=== PATIENT | male | born 1995 | race Caucasian/White ===

== ENCOUNTER 2016-11-16 04:33 | Observation (INO) | payer OTHER ==
[2016-11-16] MEDS ORDERED: NS 1,000 ML IV ONE ×2 (04:57→06:09)
[2016-11-16] MEDS ORDERED: ONDANSETRON DISINTEGRATING 4 MG TAB PO ONE (04:57)
[2016-11-16] MEDS ORDERED: HYDROmorphONE/DILAUDID 1 MG/ML SYR IVP ONE (04:57)
[2016-11-16] MEDS ORDERED: ONDANSETRON 4 MG/2 ML VIAL IVP ONE (04:58)
--- NOTE | 2016-11-16 05:06 | EDPHY ---
H & P Stated Complaint: abd pain Time Seen by Provider: 11/16/16 04:52 HPI/ROS: HPI The patient presents with abdominal pain that has been present since about 1:00 a.m. today. He was able to fall sleep but then awoke at about 3:00 a.m. with worsening pain which is in his right abdomen, it is sharp in nature, radiates toward his back, is dull and severe. He has no prior history of similar pain. He has associated nausea without any vomiting, fever, anorexia. He has felt constipated for the last 1 day. He has never had pain like this before. He denies any trauma. He just return from a study abroad trip across several [place] 3 days ago. REVIEW OF SYSTEMS Constitutional: No fever, no chills. Eyes: No discharge. ENT: No sore throat. Cardiovascular: No chest pain, no palpitations. Respiratory: No cough, no shortness of breath. Gastrointestinal: See HPI Genitourinary: No hematuria. Musculoskeletal: No back pain. Skin: No rashes. Neurological: No headache. PMHx: Healthy Soc Hx: College student PHYSICAL General Appearance: Alert, uncomfortable appearing Eyes: Pupils equal and round no pallor or injection ENT, Mouth: Mucous membranes moist Respiratory: There are no retractions, lungs are clear to auscultation Cardiovascular: Regular rate and rhythm Gastrointestinal: Abdomen is soft with tenderness in the right abdomen lateral to the umbilicus. Neurological: A&O, moves all extremities Skin: Warm and dry, no rashes Musculoskeletal: Neck is supple non tender Extremities: symmetrical, full range of motion Psychiatric: Patient is oriented X 3, there is no agitation Source: Patient - Personal History Current Tetanus Diphtheria and Acellular Pertussis (TDAP): Yes - Medical/Surgical History Hx Asthma: No Hx Chronic Respiratory Disease: No Hx Diabetes: No Hx Cardiac Disease: No Hx Renal Disease: No Hx Cirrhosis: No Hx Alcoholism: No Hx HIV/AIDS: No Hx Splenectomy or Spleen Trauma: No Other PMH: denies - Social History Smoking Status: Never smoked Constitutional: Initial Vital Signs Temperature (C) 36.7 C 11/16/16 04:37 Heart Rate 80 11/16/16 04:37 Respiratory Rate 24 H 11/16/16 04:37 Blood Pressure 114/48 L 11/16/16 04:37 O2 Sat (%) 98 11/16/16 04:37 O2 Delivery Mode Room Air Allergies/Adverse Reactions: No Known Allergies Allergy (Unverified 11/16/16 04:37) Home Medications: Medication Instructions Recorded NK [No Known Home Meds] 11/16/16 Medical Decision Making - Diagnostics Imaging Results: Right lower quadrant ultrasound reveals appendicitis, discussed with Dr. Moreno of Radiology. Imaging: I viewed and interpreted images myself ED Course/Re-evaluation: 6:15 a.m.- Patient's labs returned and revealed a leukocytosis. Otherwise labs are normal. After receiving IV fluids and pain medication, his pain is much improved , now at 2/10 on reassessment. Ultrasound reveals acute appendicitis. I have consulted with Dr. Cook of General surgery who will come to the emergency room to evaluate the patient. 7:45 a.m.- The patient has been seen by Dr. Cook and will go to the operating room later this morning. He has received IV fluids and antibiotics at this point. Differential Diagnosis: This is a 21-year-old healthy male with several hours of right-sided abdominal pain. - Data Points Laboratory Results: Laboratory Results 11/16/16 04:47 11/16/16 04:47 11/16/16 11/16/16 04:47 04:47 WBC 14.02 10^3/uL H 10^3/uL (3.80-9.50) RBC 5.42 10^6/uL 10^6/uL (4.40-6.38) Hgb 16.4 g/dL g/dL (13.7-17.5) Hct 46.5 % % (40.0-51.0) MCV 85.8 fL fL (81.5-99.8) MCH 30.3 pg pg (27.9-34.1) MCHC 35.3 g/dL g/dL (32.4-36.7) RDW 12.0 % % (11.5-15.2) Plt Count 275 10^3/uL 10^3/uL (150-400) MPV 9.0 fL fL (8.7-11.7) Neut % (Auto) 86.0 % H % (39.3-74.2) Lymph % (Auto) 9.6 % L % (15.0-45.0) Williamson % (Auto) 3.2 % L % (4.5-13.0) Eos % (Auto) 0.4 % L % (0.6-7.6) Baso % (Auto) 0.3 % % (0.3-1.7) Nucleat RBC Rel Count 0.0 % % (0.0-0.2) Absolute Neuts (auto) 12.06 10^3/uL H 10^3/uL (1.70-6.50) Absolute Lymphs (auto) 1.34 10^3/uL 10^3/uL (1.00-3.00) Absolute Monos (auto) 0.45 10^3/uL 10^3/uL (0.30-0.80) Absolute Eos (auto) 0.06 10^3/uL 10^3/uL (0.03-0.40) Absolute Basos (auto) 0.04 10^3/uL 10^3/uL (0.02-0.10) Absolute Nucleated RBC 0.00 10^3/uL 10^3/uL (0-0.01) Immature Gran % 0.5 % % (0.0-1.1) Immature Gran # 0.07 10^3/uL 10^3/uL (0.00-0.10) Sodium 144 mEq/L mEq/L (134-144) Potassium 3.5 mEq/L mEq/L (3.5-5.2) Chloride 106 mEq/L mEq/L (97-110) Carbon Dioxide 22 mEq/l mEq/l (22-31) Anion Gap 16 mEq/L mEq/L (8-16) BUN 17 mg/dL mg/dL (7-23) Creatinine 1.0 mg/dL mg/dL (0.7-1.3) Estimated GFR > 60 Glucose 109 mg/dL H mg/dL (70-100) Calcium 10.1 mg/dL mg/dL (8.5-10.4) Total Bilirubin 1.0 mg/dL mg/dL (0.1-1.4) Conjugated Bilirubin 0.4 mg/dL mg/dL (0.0-0.5) Unconjugated Bilirubin 0.6 mg/dL mg/dL (0.0-1.1) AST 36 IU/L IU/L (17-59) ALT 37 IU/L IU/L (21-72) Alkaline Phosphatase 80 IU/L IU/L (38-126) Total Protein 8.1 g/dL g/dL (6.3-8.2) Albumin 5.2 g/dL H g/dL (3.5-5.0) Lipase 60.0 IU/L IU/L (23-300) Medications Given: Discontinued Medications Hydromorphone HCl (Dilaudid) 0.5 mg IVP EDNOW ONE Stop: 11/16/16 04:58 Last Admin: 11/16/16 05:08 Dose: 0.5 mg Sodium Chloride (Ns) 1,000 mls @ 0 mls/hr IV ONCE ONE PRN Reason: Wide Open Stop: 11/16/16 04:58 Last Admin: 11/16/16 05:05 Dose: 1,000 mls Sodium Chloride (Ns) 1,000 mls @ 0 mls/hr IV ONCE ONE PRN Reason: Wide Open Stop: 11/16/16 06:10 Last Admin: 11/16/16 06:23 Dose: 1,000 mls Ertapenem 1 gm/ Sodium (Chloride) 100 mls @ 200 mls/hr IV EDNOW ONE PRN Reason: Protocol Stop: 11/16/16 06:38 Last Admin: 11/16/16 06:33 Dose: 100 mls Ondansetron HCl (Zofran) 4 mg IVP EDNOW ONE Stop: 11/16/16 04:59 Last Admin: 11/16/16 05:06 Dose: 4 mg Departure - Departure Disposition: [facility] Acute Clinical Impression: Acute appendicitis Qualifiers: Acute appendicitis type: with localized peritonitis Qualified Code(s): K35.3 - Acute appendicitis with localized peritonitis Condition: Good
[2016-11-16 05:13] LABS: % IMMATURE GRANULYOCYTES 0.5 % (0.0-1.1); ABSOLUTE IMMATURE GRANULOCYTES 0.07 10^3/uL (0.00-0.10); ADD DIFF? NO; ADD MORPH? NO; ADD SCAN? NO; ATYPICAL LYMPHOCYTE FLAG 0 (0-99); FRAGMENT RBC FLAG 0 (0-99); HEMATOCRIT 46.5 % (40.0-51.0); HEMOGLOBIN 16.4 g/dL (13.7-17.5); LEFT SHIFT FLG 0 (0-99); LIPEMIA HEMOLYSIS FLAG 90 (0-99); MEAN CELL HEMOGLOBIN 30.3 pg (27.9-34.1); MEAN CELL HEMOGLOBIN CONCENTR. 35.3 g/dL (32.4-36.7); MEAN CELL VOLUME 85.8 fL (81.5-99.8); PLATELET CLUMPS FLAG 10 (0-99); PLATELET COUNT 275 10^3/uL (150-400); RED BLOOD CELL COUNT 5.42 10^6/uL (4.40-6.38)
[2016-11-16 05:18] LABS: ALANINE AMINOTRANSFERASE 37 IU/L (21-72); ALBUMIN 5.2 g/dL (3.5-5.0); ALKALINE PHOSPHATASE 80 IU/L (38-126); ANION GAP 16 mEq/L (8-16); ASPARTATE AMINOTRANSFERASE 36 IU/L (17-59); BILIRUBIN-CONJUGATED 0.4 mg/dL (0.0-0.5); BILIRUBIN-UNCONJUGATED 0.6 mg/dL (0.0-1.1); CALCIUM 10.1 mg/dL (8.5-10.4); CARBON DIOXIDE 22 mEq/l (22-31); CHLORIDE 106 mEq/L (97-110); GLOMERULAR FILTRATION RATE > 60; GLUCOSE 109 mg/dL (70-100); POTASSIUM 3.5 mEq/L (3.5-5.2); SODIUM 144 mEq/L (134-144); TOTAL PROTEIN 8.1 g/dL (6.3-8.2)
[2016-11-16] MEDS ORDERED: ERTAPENEM 1 GM in NS 100 ML IV ONE (06:09)
[2016-11-16] MEDS ORDERED: BUPIVACAINE/EPI 0.25% 30 ML SDV ONE (07:56)
[2016-11-16] MEDS ORDERED: BUPIVACAINE/EPI 0.5% 30 ML SDV ONE (07:56)
[2016-11-16] MEDS ORDERED: ceFAZolin 1 GM/5 ML SYR ONE ×2 (07:56→07:59)
--- NOTE | 2016-11-16 07:58 | GHP ---
[f rep st] PREOP HISTORY AND PHYSICAL DATE OF ADMISSION: 11/16/2016 ADMITTING DIAGNOSIS: Acute appendicitis. HISTORY OF PRESENT ILLNESS: The patient is a 21-year-old male who was in his usual state of good he alth. He had a hamburger at 8:30 last night. He went to bed at approximately 1:30 and was noted to be slightly uncomfortable at that point. He woke up at 3:30 with extreme right lower quadrant pain . He did not have nausea. He did not have vomiting. He presented to the ER for evaluation. His w susana count was 14,000 with 86% segs. An ultrasound showed a noncompressible tubular structure in th e right lower quadrant which was exquisitely tender for him. He has never had any prior abdominal surgery. He has never had any prior similar symptoms. He rece ntly had an upper respiratory tract infection. He did have diarrhea 4 months ago and 3 weeks ago. The diarrhea 3 weeks ago was when he was in [place] and the whole family had traveler's diarrhea. Th ey were treated with Cipro. 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 The [place] s visited included [place], [place], [place], [place], [place], [place], [place], and [place]. He also has been in the [place], [place] and [place]. He did have Zithromax 3 weeks ago. There is n o history of inflammatory bowel disease. SOCIAL HISTORY: He does not smoke. He does drink approximately 1 drink per day. ALLERGIES: He had an adverse reaction to Benadryl years ago marked by hallucinations. MEDICATIONS: He is not taking medications. PAST SURGICAL HISTORY: His only surgery has been removal of a stye from his eye. PAST MEDICAL HISTORY: There is no history of rheumatic fever, tuberculosis hepatitis, transfusions or HIV. REVIEW OF SYSTEMS: Absolutely negative. No limits on his activities. No history of steroid use. PHYSICAL EXAMINATION: GENERAL: He is awake, alert, in mild distress. HEENT: Skull is normocephal ic and atraumatic. NEUROLOGIC: Rocky Coma Scale 15. There are no focal lateralizing neurologic findings. LYMPHATICS: There is no cervical, supraclavicular, axillary or inguinal lymphadenopathy. NECK: Supple and nontender. Thyroid is not enlarged. LUNGS: Clear to auscultation. CARDIAC: S1, S2 normal. Split S2 without murmurs, rubs, or gallops. ABDOMEN: He is not hungry at this poin t. He has hypoactive bowel sounds. Psoas and obturator signs are negative. He is tender with coug h over McBurney point; it is 7/10. To palpation, left upper quadrant is 1, left mid abdomen is 1, l eft lower quadrant is 1, epigastrium is 1, periumbilical area is 1, suprapubic area is 1, right uppe r quadrant is 1, right mid abdomen is 6, right lower quadrant is 1. LABORATORY DATA: As mentioned above, his white count was 14,200, his percent neutrophils is 86%. H is hematocrit is 45, platelets 275,000. His metabolic panel was unremarkable. He did receive 1 g o f Invanz at 6 a.m. IMPRESSION: This patient has a high-degree probability of having acute appendicitis. The possibili ty of a parasitic component must be considered given his travel around the world. PLAN: Laparoscopic, possibly open, appendectomy. /[id number]/MODL
[2016-11-16] MEDS ORDERED: LR 1,000 ML IV ONE (08:00)
[2016-11-16] MEDS ORDERED: fentaNYL 100 MCG/2 ML INJ ONE ×3 (08:00→09:30)
[2016-11-16] MEDS ORDERED: PROPOFOL/EMULSION 500 MG/50 ML BOTTLE IV ONE (08:00)
[2016-11-16] MEDS ORDERED: ROCURONIUM 100 MG/10 ML VIAL ONE (08:02)
[2016-11-16] MEDS ORDERED: LIDOCAINE 2% 5 ML SDV ONE (08:02)
[2016-11-16] MEDS ORDERED: HEPARIN 5,000 UNIT/0.5 ML SYR SC ONE ×2 (08:30→10:30)
[2016-11-16] MEDS ORDERED: HEPARIN 1000 UNIT/1 ML MDV ONE (08:36)
[2016-11-16] MEDS ORDERED: GLYCOPYRROLATE 0.2 MG/1 ML VIAL ONE (08:40)
[2016-11-16] MEDS ORDERED: KETOROLAC 30 MG/1 ML SDV ONE (09:02)
[2016-11-16] MEDS ORDERED: SUGAMMADEX SODIUM 200 MG/2 ML VIAL IVP ONE (09:03)
[2016-11-16] MEDS ORDERED: HYDROmorphONE/DILAUDID 1 MG/ML SYR ONE (09:30)
[2016-11-16] MEDS ORDERED: ONDANSETRON 4 MG/2 ML VIAL IVP PRN (09:41)
--- NOTE | 2016-11-16 09:52 | POSTOPPROG ---
Post Op Note Date of Operation: 11/16/16 Surgeon: Edgar Cook Anesthesia: GET(General Endotracheal) Pre-op Diagnosis: acute appendicitis Post-op Diagnosis: acute appendicitis Indication: acute appendicitis Procedure: Laparoscopic appendectomy Findings: acute appendicitis Inf/Abcess present in the surg proc area at time of surgery?: No EBL: Minimal Total fluids administered: 2.2 liters since ER admission Complications: none Specimen(s): appendectomy
--- NOTE | 2016-11-16 10:18 | GOP ---
[f rep st] OPERATIVE REPORT DATE OF OPERATION: 11/16/2016 SURGEON: Edgar Cook MD ANESTHESIA: General endotracheal. PREOPERATIVE DIAGNOSIS: Acute appendicitis. POSTOPERATIVE DIAGNOSIS: Acute unruptured appendicitis. PROCEDURE PERFORMED: Laparoscopic appendectomy. FINDINGS: Acute unruptured appendicitis. INDICATIONS: Acute appendicitis DESCRIPTION OF PROCEDURE: The patient was placed on the operating table in a supine position. After induction of adequate general endotracheal anesthesia. The abdomen was carefully clipped, prepped, and draped. A surgical time-out was carried out and agreed to by all members of the operative team. A curvilinear incision was planned at the umbilicus. The skin was sharply incised. The dermal incision is deepened with Bovie electrocautery. Subcutaneous tissue was carefully bluntly spread to expose the anterior rectus sheath. This was elevated on either side of the midline with Allis clamps. The fascia was entered in the midline. A pursestring of #0 PDS was placed. The peritoneum was entered. An 11/12 disposable Aleksandr trocar was positioned. Intraabdominal insufflation was carried out to 15 mmHg. An oblique left lower quadrant 5 mm incision was made as was a transverse suprapubic incision. 5 mm trocars were carefully placed under direct vision. The peritoneal cavity was now inspected. There was no evidence of purulence. The appendix was retrocecal. The cecum had to be mobilized to expose the appendix. There was a small amount of periappendiceal serous fluid identified which was aspirated. The mesoappendix was divided with Harmonic Scalpel. Appendix was skeletonized at its base. Appendix was transected with 1 application of a powered 35 mm Endo -BERNADINE with vascular dafne. The specimen was placed in EndoCatch bag and carefully delivered. Examination was carried out. There was no evidence of inguinal hernias. The liver was unremarkable. Gallbladder was unremarkable. The small bowel was run for a distance of approximately 3 feet. There was no evidence of either a Meckel diverticulum or mesenteric adenitis. Irrigation with heparin and Ancef containing irrigant has been carried out. Ports were removed under direct vision. Abdominal insufflation was released. A simple suture of 0 PDS was placed at the midpoint of the midline fascial defect. The pursestring was tied first, then the simple PDS sutures tied. Subcutaneous tissue had been irrigated with heparin and Ancef containing irrigant. The skin was closed at all levels, inverted simple sutures of 4-0 Vicryl. Mastisol and Steri-Strips were applied. Band-Aids were positioned. The patient is transferred to recovery in stable and satisfactory condition. TOTAL FLUIDS: 2.2 L since ER admission. /[id number]/MODL MTDD
[2016-11-16] MEDS ORDERED: HYDROCODONE/APAP 5/325 TAB ONE (10:23)
[2016-11-16] MEDS: LR 1,000 ML IV SCH ×2 (11:38→21:39)
[2016-11-16] MEDS: KETOROLAC 15 MG/1 ML SDV IVP SCH ×2 (11:38→18:11)
[2016-11-16] MEDS: ACETAMINOPHEN 500 MG TAB PO SCH ×2 (14:25→21:38)
[2016-11-17] MEDS: KETOROLAC 15 MG/1 ML SDV IVP SCH ×2 (00:01→05:26)
[2016-11-17] MEDS: ACETAMINOPHEN 500 MG TAB PO SCH (05:27)
[2016-11-17 05:30] VITALS: BP 106/59; PULSE 50; RESP 16; TEMP 98.8; O2SAT 96
--- NOTE | 2016-11-17 06:45 | SOAPPROG ---
SOAP Progress Note Assessment/Plan: 11/17/16 06:42 Assessment: POD#1 Passing flatus and a small bowel movement. Pain well controlled. VSS. Doing well. Plan: Discharge Subjective: No complaints. Pasing flatus and some stool Objective: Vital Signs Temp Pulse Resp BP Pulse Ox 37.1 C 50 L 16 106/59 L 96 11/17/16 05:29 11/17/16 05:29 11/17/16 05:29 11/17/16 05:29 11/17/16 05:29 11/16/16 11/17/16 11/18/16 05:59 05:59 05:59 Intake Total 5421 Output Total 5 Balance 5416 - Time Spent With Patient Time Spent With Patient: 15 - Pending Discharge Pending Discharge Within 24 Hours: Yes Pending Discharge Date: 11/18/16 Pending Discharge Time: 11:00 Physical Exam - Physical Exam General Appearance: no apparent distress Neck: non-tender, full range of motion, supple, normal inspection Respiratory: chest non-tender, lungs clear, normal breath sounds Cardiac/Chest: regular rate, rhythm Abdomen: normal bowel sounds, non-tender, soft, other (incisions - clean and dry , steri-strips in place) Male Genitalia: deferred Rectal: deferred Back: Normal inspection Skin: normal color, warm/dry Extremities: normal range of motion, non-tender Neuro/Psych: no motor/sensory deficits, alert, normal mood/affect, oriented x 3 ICD10 Worksheet Patient Problems: Problems Problem Status Onset Acute appendicitis Acute
--- NOTE | 2016-11-17 07:16 | GDS ---
[f rep st] DISCHARGE SUMMARY DISCHARGE DIAGNOSIS: Acute unruptured appendicitis. PROCEDURE PERFORMED: Laparoscopic appendectomy. CONDITION AT DISCHARGE: Improved. DISPOSITION: Home. DIET: Unrestricted. Otherwise suggest he avoid constipating foods such as bananas, rice, applesauce, and cheese. MEDICATIONS AT DISCHARGE: He will take Tylenol 1000 mg every 8 hours as scheduled. He will take Toradol 10 mg p.o. q.6 hours scheduled, and when it is complete, he will substitute 200 mg Motrin every 6 hours if it is still needed. Dilaudid will be dispensed and that will be 2 mg every 4 hours as needed for breakthrough pain. For the next 3 weeks he is to shower only. He is to lift less than 10 pounds and he is to keep his Steri-Strips in place. He is to watch for signs of infection and that would include the superficial area increasing redness, warmth , tenderness and swelling. In the abdomen, he is to watch for fevers, chills, malaise and loss of appetite. His diet is unrestricted, but I have suggested he avoid constipating foods such as bananas, rice, applesauce, and cheese. He will follow up with Dr. Husam Clements' office in 2 weeks as needed. /[id number]/MODL MTDD
== END 2016-11-17 09:40 | disposition home or self-care (01) ==
LOC: F1N 10:36
PROVIDERS: ADMIT Surgery; ATTEND Surgery
PROC: 0DTJ4ZZ Resection of Appendix, Percutaneous Endoscopic Approach (ICD-10-PCS; principal; 2016-11-16 08:00)
DX: K35.80 Unspecified acute appendicitis (principal)
CPT/HCPCS: 44970; 76705; 96361; 96365; 96375; 99285; G0378; J1170; J1335; J1885; J2405; J2704; J3010